=== PATIENT | male | born 1945 | race Caucasian/White ===

== ENCOUNTER 2020-10-17 01:59 | Outpatient (CLI) | payer BC, SELFPAY ==
[2020-10-18 16:54] LABS: COVID-19 RT-PCR UVMMC Result Negative (Negative)
== END 2020-10-17 02:19 ==
PROVIDERS: PCP Registered Nurse; Visit Provider Podiatrist
DX: Z11.59 Encounter for screening for other viral diseases (principal); Z01.818 Encounter for other preprocedural examination
CPT/HCPCS: U0003

== ENCOUNTER 2020-10-20 06:17 | Day surgery (SDC) | payer BC, SELFPAY ==
[2020-10-20 06:36] VITALS: BP 154/89; PULSE 87; RESP 16; TEMP 36.6; O2SAT 94
[2020-10-20] MEDS: Lactated Ringers 1,000 ML 80 ML IV (07:00)
--- NOTE | 2020-10-20 07:04 | W.PM.HP.N ---
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 In spite of palliative treatments skin continues to breakdown with chronic ulceration multiple bouts of cellulitis secondary to the wound. He is being brought to the OR for surgical intervention. [facility] Medical History Arthralgia Charcot's joint of left foot Charcot's joint of right foot CKD (chronic kidney disease) GERD (gastroesophageal reflux disease) HTN (hypertension) Hx of laminectomy Osteoarthritis Osteoporosis Pseudogout Surgical History History of back surgery History of partial colectomy Hx of colonoscopy Hx of vasectomy Social History Smoking/Tobacco Use Status: Former Tobacco Use Quit Date: 11/17/74 Smoking risk assessment performed?: Yes Alcohol Intake: never Drug use: Never Substance use type: does not use Do you feel safe at home: Yes Do you feel safe in your relationship?: Yes Meds Home Medications and Allergies Home Medications Medication Instructions Recorded Confirmed Type allopurinol 300 mg PO HS 10/18/20 10/20/20 History ascorbic acid (vitamin C) 500 mg PO DAILY 10/18/20 10/20/20 History aspirin 81 mg PO DAILY 10/18/20 10/20/20 History atorvastatin 40 mg PO DAILY 10/18/20 10/20/20 History cetirizine-pseudoephedrine 1 tab PO DAILY 10/18/20 10/20/20 History [Zyrtec-D] cyanocobalamin (vitamin B-12) 1 tab PO DAILY 10/18/20 10/20/20 History [Vitamin B-12] esomeprazole magnesium 40 mg PO DAILY 10/18/20 10/20/20 History lisinopril-hydrochlorothiazide 1 tab PO DAILY 10/18/20 10/20/20 History magnesium oxide 500 mg PO DAILY 10/18/20 10/20/20 History multivitamin 1 tab PO DAILY 10/18/20 10/20/20 History potassium gluconate 595 mg PO DAILY 10/19/20 10/20/20 History prednisone 5 mg PO DAILY 10/19/20 10/20/20 History Allergies Allergy/AdvReac Type Severity Reaction Status Date / Time cholecalciferol (vitamin D3) Allergy Unknown Unverified 10/20/20 06:27 [From Vitamin D3] animal dander Allergy Other (See Unverified 10/20/20 06:27 Comment) Exam Narrative Exam Narrative: 75-year-old white male in no acute distress. He is awake alert and oriented x3. He is pleasant. Head is normocephalic Eyes PERRLA Hearing is adequate Uvula is midline airway looks assessable Heart had regular rate and rhythm without gallops rubs or murmurs noted Lung chao are clear Abdomen was soft, nontender, bowel sounds x4 Peripheral pulses are manually palpable at the ankles minus 2 out of 4 bilaterally. No peripheral edema. Capillary fill is under 3 seconds to all toes. Feet are warm to the touch. Muscle groups of 5 out of 5 bilaterally. Skeletal exam reveals significant midtarsal breech with plantar subluxation of the medial column with subsequent ulceration under the cuneiform without active signs of infection. Charcot deformity noted. No acute joint inflammation currently noted. Joint appears to be well-maintained without subluxation. Neurologically: Grossly intact Impression: Chronic ulceration left foot secondary to Charcot foot changes Plan: Is being brought to the OR for surgical resection prominent bone plantar medial aspect of the left foot. He understands risk and complications pertaining to ongoing infection, scarring, and the need for revisional procedures and stabilization of the midfoot. No promises made to final outcome of surgery. Informed consents been obtained. Results Last Vital Signs Temp 36.6 C 10/20/20 06:36 Pulse 87 10/20/20 06:36 Resp 16 10/20/20 06:36 BP 154/89 H 10/20/20 06:36 Pulse Ox 94 10/20/20 06:36 COVID-19 Screening Have you, or household traveled for leisure in last 14 days?: No Had IN PERSON contact w/suspected or confirmed C-19 person: No
[2020-10-20] MEDS: ceFAZolin 1 GM/50 ML BAG IVPB (07:45)
[2020-10-20] MEDS: Lidocaine 1% Multi-Dose 50 ML VIAL (07:55)
[2020-10-20] MEDS: Bupivacaine 0.5% Pres-Free 30 ML VIAL (07:55)
--- NOTE | 2020-10-20 08:24 | SOFT_PTH ---
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 LIPOMA) Procedures: GROSS AND MICRO LEVEL 5 Comments: [id number] (SUBMITTED IN 100% ETHANOL)
[2020-10-20] MEDS: Dexamethasone 4 MG/ML VIAL (08:34)
--- NOTE | 2020-10-20 08:43 | PDOC.DSDIS_ITS ---
Discharge Plan Disposition Patient Disposition: HOME Condition: Good Discharge Details Reason For Visit: Resection bone left midfoot Attending Provider: Ag Cartagena Primary Care Provider: Carla Lopez Home Meds and New Rx's Prescriptions: New hydrocodone-acetaminophen [[place]] 5-325 mg tablet 1 tab PO Q6H PRN (Reason: pain) Qty: 10 RF: 0 Continued multivitamin Tablet 1 tab PO DAILY RF: 0 cetirizine-pseudoephedrine [Zyrtec-D] 5-120 mg Tablet Extended Release 12 Hr 1 tab PO DAILY RF: 0 atorvastatin 40 mg tablet 40 mg PO DAILY RF: 0 lisinopril-hydrochlorothiazide 20-12.5 mg tablet 1 tab PO DAILY RF: 0 aspirin 81 mg Capsule,Delayed Release(Dr/Ec) 81 mg PO DAILY RF: 0 ascorbic acid (vitamin C) 500 mg Tablet 500 mg PO DAILY RF: 0 esomeprazole magnesium 40 mg capsule,delayed release(DR/EC) 40 mg PO DAILY RF: 0 magnesium oxide 500 mg Tablet 500 mg PO DAILY RF: 0 allopurinol 300 mg Tablet 300 mg PO HS RF: 0 cyanocobalamin (vitamin B-12) Tablet,Chewable 1 tab PO DAILY RF: 0 prednisone 5 mg Tablet 5 mg PO DAILY RF: 0 potassium gluconate 595 mg (99 mg) Tablet 595 mg PO DAILY RF: 0 Discharge Instructions Activity:: Elevate Remove Dressings/Wound Care:: Do Not Remove Shower/Bathe:: Cover Discharge Orders Discharge Orders: Discharge Order (Routine); Ordered 10/20/20 Ordered By: Ag Cartagena DS: Diagnosis Discharge Diagnosis (1) Charcot's joint of left foot: Status: Acute
--- NOTE | 2020-10-20 08:48 | W.PM.OP ---
Date of service: 10/20/20 Time of Service: 08:48 Operative Note Operative Note DATE OF PROCEDURE: 10/20/20 PRE-OP DIAGNOSIS: Left Charcot foot changes with ulceration of skin POST-OP DIAGNOSIS: same 75-year-old white male with Charcot derangement of the left foot with medial column plantar subluxation and subsequent plantar medial ulceration of the skin. He has had multiple infections secondary to the open wound and is being brought to the OR for surgical resection of the displaced bone. PROCEDURE: Jose David was brought to the operative suite placed in the supine position with the left foot prepped and draped in the usual sterile podiatric fashion. Timeout was performed per protocol. Anesthesia was obtained through IV general and local blockade of the left foot utilizing 20 cc of a 50: 50 mixture 1% lidocaine plain, 0.5% Marcaine plain. Left foot was exsanguinated a well-padded ankle tourniquet inflated 250 mmHg. Attention was directed to the medial aspect of the left foot where a 3-1/2 cm incision was made along the medial side of the foot just above the plantar subluxed bone which appeared to be at the level of the medial cuneiform. Incision was deepened in controlled depth fashion with hemostasis being acquired through electrocautery. Dissection was carried down removing vital structures plantarly and dorsally so as to obtain access to the plantar medial side of the bony prominence. With a #15 scalpel the periosteum was incised and stripped away from the involved bone. With osteotome and mallet the plantar subluxed portion of bone was resected. White crystalline material consistent with gout was appreciated. Samples of this bone and soft tissue was sent in alcohol to pathology. Upon resection of the plantigrade bony section we entered the navicular medial cuneiform joint and a small section of bone was also removed from both sides of the joint so as to recreate a less prominent plantar protuberance of bone. A hand rasp was then used and all rough and bony edges rasped smooth. Finger palpation revealed sufficient resection of bone. Wound was copiously irrigated and the periosteum repaired with simple interrupted suture 3-0 Vicryl. The deeper layers were closed sequentially with 3-0 Vicryl coming up to 4-0 Vicryl oh close the subcutaneous layer followed by 4-0 nylon simple interrupted suture to coapt the skin. 4 mg dexamethasone phosphate was infused deeply into the wound. Xeroform gauze fluff compression dressings were applied. Tourniquet was released at 37 minutes with vascularity returning immediately to the left foot. Jose David left the OR with vital signs stable vascular status intact sharp and sponge counts were correct. He will be followed by myself in the office next week. SURGEON: Ag Cartagena ANESTHESIA: MAC ESTIMATED BLOOD LOSS: 1 PATHOLOGY: other TOURNIQUET TIME: 37 COMPLICATIONS: None Patient's condition: stable
[2020-10-20 09:22] VITALS: BP 134/77; PULSE 80; RESP 18; TEMP 36.4; O2SAT 94
== END 2020-10-20 09:38 | disposition home or self-care (01) ==
PROVIDERS: PCP Registered Nurse; Visit Provider Podiatrist
PROC: (CPT 28288; principal; 2020-10-20 07:30)
DX: M14.672 Charcot's joint, left ankle and foot (principal); M11.272 Other chondrocalcinosis, left ankle and foot; L97.529 Non-pressure chronic ulcer of other part of left foot with unspecified severity
CPT/HCPCS: 28050; 28122; 99223; 88304; 88307; J0690; J1100; J2001; J2370; J3010